=== PATIENT | female | born 1970 | race Asian ===

== ENCOUNTER 2023-11-16 09:14 | Outpatient (REF) | payer MEDICAID, SELFPAY ==
--- NOTE | ~2023-11-16 | XR_ITS ---
EXAMINATION: XR KNEE AP STANDING, BILATERAL XR KNEE, LEFT CLINICAL INFORMATION: Pain in unspecified knee. COMPARISON: None available. TECHNIQUE: AP standing view of bilateral knees. Lateral and sunrise views of the left knee. FINDINGS: LEFT KNEE: Mild medial joint space narrowing. Small medial marginal osteophytes. Small joint effusion. RIGHT KNEE: AP standing view of the right knee demonstrates mild medial joint space narrowing and small medial marginal osteophytes. XR/XR knee LT 2V IMPRESSION: Mild degenerative changes in the bilateral knees.
--- NOTE | ~2023-11-16 | XR_ITS ---
EXAMINATION: XR KNEE AP STANDING, BILATERAL XR KNEE, LEFT CLINICAL INFORMATION: Pain in unspecified knee. COMPARISON: None available. TECHNIQUE: AP standing view of bilateral knees. Lateral and sunrise views of the left knee. FINDINGS: LEFT KNEE: Mild medial joint space narrowing. Small medial marginal osteophytes. Small joint effusion. RIGHT KNEE: AP standing view of the right knee demonstrates mild medial joint space narrowing and small medial marginal osteophytes. XR/XR knee standing BI IMPRESSION: Mild degenerative changes in the bilateral knees.
== END 2023-11-16 09:15 | disposition home or self-care (01) ==
LOC: HO.HOSX 09:14
PROVIDERS: Visit Provider Physician Assistant
DX: M71.22 Synovial cyst of popliteal space [Baker], left knee (principal); M17.12 Unilateral primary osteoarthritis, left knee
CPT/HCPCS: 20610; 73560; 73565; 99212; J1040

== ENCOUNTER 2023-11-16 10:11 | Outpatient (AMB) | payer MEDICAID, SELFPAY ==
--- NOTE | 2023-11-16 10:29 | A.OFFVIS_ITS ---
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 She states that she noticed it about 6 months ago. Pain is worse when she is walking long distances and standing for a long time. She is noticing that her right knee is also growing a bump as well. No hx of treatment. 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 The patient reports having a lump behind her left knee. She states she noticed this about 6 months ago. She states the pain increases with ambulating long distances and standing for long periods of time. She denies any history of treatment. Patient reports the start of a lump behind the right knee as well. Patient denies a history of diabetes mellitus. [facility] Social History (Updated 11/16/23 @ 10:34 by Sergey Benson) Alcohol intake: never Patient Tobacco Use Status: Never used Tobacco Current occupational status: employed Review of Systems Const All systems reviewed & are unremarkable except as noted in HPI and below Physical Exam Const General: cooperative and no acute distress Orientation/consciousness: patient oriented x3 Resp Effort & Inspection: normal respiratory effort and able to speak in complete sentences Cardio Peripheral pulses: Peripheral pulses 2+ throughout Skin General skin exam: no rashes or lesions noted Neuro General: patient oriented x3 Extrem Other: Left knee: Normal to inspection. No ecchymosis, erythema, or joint effusion. No tenderness to palpation to the medial or lateral joint lines. Full knee extension and flexion. Negative Ajay's. Negative anterior drawer. NVI. Office Procedures Joint Injection/Drain Joint Injection/Drain Primary Site: left knee Prep: site was prepped using aseptic technique, ethochloride spray was applied and injection warnings given Injected: 80 mg of, DepoMedrol, with 8 mL of (2% plain lido ) and in the joint Approach Used: anterolateral Procedure: The patient tolerated the procedure well, but had some pain with the injection and there was some relief with the local anesthesia Coding 47884 - Large joint Procedure code (CPT) selection complete Assessment & Plan Assessment & Plan (1) Osteoarthritis of left knee: Code(s): M17.12 - Unilateral primary osteoarthritis, left knee (2) Synovial cyst of popliteal space [Pat], left knee: Code(s): M71.22 - Synovial cyst of popliteal space [Pat], left knee Plan Ms. Castro is a 53-year-old female who presents in the office today for an evaluation of left knee pain. The patient reports having a lump behind her left knee. She states she noticed this about 6 months ago. She states the pain increases with ambulating long distances and standing for long periods of time. She denies any history of treatment. Patient reports the start of a lump behind the right knee as well. Patient denies a history of diabetes mellitus. The patient was offered a cortisone injection in the left knee with 80 mg of DepoMedrol. The patient was explained the risk, benefits, and alternatives to receiving this injection. After receiving consent for the injection, the patient had the procedure done while in office today. The patient tolerated the procedure well with no complications. We discussed that to treat the pat?s cyst we need to treat the arthritis. The patient was instructed she is able to apply heat to the area. She is also able to apply compression to the knee for edema. I recommend the use of Ibuprofen to help with pain. Follow up will be PRN, or sooner if needed. The patient was also instructed should her right knee increase in pain she can come to the office for a cortisone injection. X-rays of the left knee which were obtained while in the office today and were reviewed by me, Kylee Bazzi PA-C, revealed osteoarthritis. Orders: Orders XR knee standing BI Today M25.569 - Pain in unspecified knee XR knee LT 2V Today M25.569 - Pain in unspecified knee Patient Instructions: Scribed by Rosi Novak registered medical assistant, for Kylee Bazzi PA-C on 11/16/2023 at 10:19 am, EST. Coding Level of Care Code New Pt Level 4 (97254) Diagnoses Osteoarthritis of left knee M17.12 Synovial cyst of popliteal space [Pat], left knee M71.22 CPT Codes Coding - 51970 Large joint: 93686 - Large joint ([id number])
== END 2023-11-16 11:32 | disposition home or self-care (01) ==
PROVIDERS: Visit Provider Physician Assistant
DX: M17.12 Unilateral primary osteoarthritis, left knee (principal); M71.22 Synovial cyst of popliteal space [Baker], left knee
CPT/HCPCS: 20610; 99204